=== PATIENT | female | born 1990 | race Caucasian/White ===

== ENCOUNTER → 2020-03-26 09:03 | Outpatient (CLI) | payer BC, SELFPAY ==
--- NOTE | 2020-03-26 09:14 | XR_ITS ---
PROCEDURE: XR ACUTE ABDOMEN SERIES CLINICAL INDICATION: GENERALIZED ABD PAIN Pain COMPARISON: No exams were available for comparison FINDINGS: Frontal view of the chest shows no acute Finding. Surgical clips are present in the left upper quadrant with suture line present in this region as well. Nonspecific nonobstructive bowel gas pattern. No intestinal obstruction or free air. Other findings:A small calcific density is present in the right mid pelvic region measuring 2 mm and may be vascular in nature. A small ureteral calculus is an additional consideration. IMPRESSION: 1. Unremarkable chest. 2. Small pelvic calcification which could be vascular or due to small ureteral stone otherwise negative Dictated by: Kervin Onofre MD 03/26/2020 16:45 Kervin Onofre MD in [facility] 03/26/2020 16:45
== END ==
PROVIDERS: PCP Internal Medicine Adolescent Medicine; Visit Provider Internal Medicine Adolescent Medicine
DX: R10.84 Generalized abdominal pain (principal)
CPT/HCPCS: 74021

== ENCOUNTER → 2020-03-28 11:46 | Outpatient (CLI) | payer BC, SELFPAY ==
--- NOTE | 2020-03-28 11:54 | CT_ITS ---
PROCEDURE: CT ABDOMEN PELVIS WO CON CLINICAL INDICATION: Microscopic hematuria right flank pain x 2 days no prior COMPARISON: No exams were available for comparison TECHNIQUE: Axial images obtained with sagittal and coronal reformats. All CT scans at the facility use one or more dose reduction, viz: automated exposure control, ma/kV adjustment per patient size (including targeted exams where dose is matched to indication, i.e. head), or iterative reconstruction technique. FINDINGS: LOWER THORAX: No acute finding ABDOMEN & PELVIS: Postsurgical changes at the GE junction from gastric bypass surgery. The liver, spleen, adrenal glands, pancreas, and kidneys have an unremarkable appearance. There is some increased density in the posterior aspect the gallbladder which may be related to sludge. Gallbladder ultrasound may confirm. Multiple unopacified bowel loops in the abdomen or pelvis which could obscure or mimic pathology. If symptoms persist, consider repeat exam with IV and oral contrast.. No renal or ureteral calculi. No hydronephrosis. There is a small amount fluid in the cul-de-sac. No evidence of appendicitis or diverticulitis. No acute bony findings. IMPRESSION: 1. No renal or ureteral calculi or hydronephrosis. 2. Prior gastric bypass. 3. Multiple unopacified bowel loops in the abdomen or pelvis which could obscure or mimic pathology. If symptoms persist, consider repeat exam with IV and oral contrast.. 4. Small amount fluid in the pelvis etiology indeterminate. Dictated by: Kervin Onofre MD 03/29/2020 08:59 Kervin Onofre MD in [facility] 03/29/2020 08:59
== END ==
PROVIDERS: PCP Internal Medicine Adolescent Medicine; Visit Provider Nurse Practitioner Family
DX: R10.9 Unspecified abdominal pain (principal); R31.29 Other microscopic hematuria
CPT/HCPCS: 74176